=== PATIENT | female | born 1950 | race Asian ===

== ENCOUNTER 2023-07-06 13:24 | Observation (INO) | payer MEDICARE ==
[2023-07-06] MEDS ORDERED: METHOCARBAMOL 500 MG TABLET PO ONE (13:57)
[2023-07-06] MEDS ORDERED: LIDOCAINE 5% TOPICAL PATCH TP ONE (13:58)
[2023-07-06] MEDS ORDERED: LIDOCAINE 5% TOPICAL PATCH ONE (14:46)
[2023-07-06] MEDS ORDERED: METHOCARBAMOL 500 MG TABLET ONE (14:46)
[2023-07-06 15:05] LABS: EPITHELIAL CELLS 0-5 /hpf
[2023-07-06 15:59] LABS: HEMATOCRIT 45.3 % (32.4-45.2); HEMOGLOBIN 14.9 G/dL (10.7-15.3); MCH 29.3 pg (25.7-33.7); MCHC 32.8 g/dl (32.0-36.0); MEAN CELL VOLUME 89.6 fl (80-96); MEAN PLT VOLUME 8.2 fl (7.5-11.1); PLATELET COUNT 249.5 10^3/uL (134-434); RBC 5.06 10^6/uL (3.60-5.2)
[2023-07-06 16:11] LABS: INR 1.08 (0.83-1.09); PROTHROMBIN TIME (PATIENT) 12.5 SEC (9.7-13.0)
[2023-07-06 16:13] LABS: ACTIVATED PTT 31.7 SECONDS (25.2-36.5)
[2023-07-06] MEDS ORDERED: ACETAMINOPHEN 1000 MG/100 ML BAG IVPB ONE (16:13)
[2023-07-06 16:21] LABS: ALBUMIN 4.4 g/dl (3.4-5.0); BILIRUBIN,TOTAL 0.6 mg/dl (0.2-1); CALCIUM 9.7 mg/dl (8.5-10.1); CREATININE 0.7 mg/dl (0.6-1.3); POTASSIUM 4.1 mmol/L (3.5-5.1); TOT PROT 7.2 g/dl (6.4-8.2)
[2023-07-06] MEDS ORDERED: ACETAMINOPHEN INJECTION 100 ML IVPB ONE (16:52)
[2023-07-06 17:09] LABS: PLATELET ESTIMATE ADEQUATE
[2023-07-06 18:34] VITALS: BMI 30.7
[2023-07-06] MEDS ORDERED: KETOROLAC TROMETHAMINE 15 MG/ML VIAL IVPUSH PRN (20:12)
[2023-07-06] MEDS: amLODIPine BESYLATE 5 MG TABLET (FP) PO SCH (21:58)
[2023-07-06] MEDS: ATORVASTATIN CA 10 MG TABLET (FP) PO SCH (21:58)
[2023-07-06] MEDS: SENNOSIDES 8.6MG TABLET (FP) PO SCH (21:58)
[2023-07-06] MEDS: ATENOLOL 50 MG TABLET (FP) PO SCH (21:58)
[2023-07-06] MEDS ORDERED: LIDOCAINE PATCH REMOVAL MC ONE (22:00)
[2023-07-06] MEDS ORDERED: ACETAMINOPHEN 1000 MG/100 ML BAG IVPB PRN (23:00)
[2023-07-07] MEDS ORDERED: traMADol HCL 50 MG TABLET PO PRN (08:01)
[2023-07-07] MEDS ORDERED: methylPREDNISolone 4 MG TABLET PO ONE (08:15)
[2023-07-07] MEDS: ACETAMINOPHEN 500 MG TABLET (FP) PO SCH ×2 (08:36→16:19)
[2023-07-07] MEDS: KETOROLAC TROMETHAMINE 15 MG/ML VIAL IVPUSH SCH ×3 (08:37→20:00)
[2023-07-07 09:11] LABS: CALCIUM 9.1 mg/dl (8.5-10.1); CREATININE 0.7 mg/dl (0.6-1.3); MAGNESIUM 2.2 mg/dL (1.8-2.4); PHOSPHOROUS 3.5 (2.5-4.9); POTASSIUM 3.9 mmol/L (3.5-5.1)
[2023-07-07] MEDS: LIDOCAINE 5% TOPICAL PATCH TP SCH (09:26)
[2023-07-07] MEDS: PANTOPRAZOLE 40 MG TABLET PO SCH (09:26)
[2023-07-07] MEDS: ATENOLOL 50 MG TABLET (FP) PO SCH ×2 (09:26→22:33)
[2023-07-07] MEDS: amLODIPine BESYLATE 5 MG TABLET (FP) PO SCH ×2 (09:26→22:32)
[2023-07-07] MEDS: POLYETHYLENE GLYCOL (HEALTHYLAX) 3350 17 GM PACKET PO SCH ×2 (09:39→22:32)
[2023-07-07] MEDS: METHOCARBAMOL 500 MG TABLET PO PRN (20:30)
[2023-07-07] MEDS: LIDOCAINE PATCH REMOVAL MC SCH (22:02)
[2023-07-07] MEDS: ATORVASTATIN CA 10 MG TABLET (FP) PO SCH (22:30)
[2023-07-07] MEDS: SENNOSIDES 8.6MG TABLET (FP) PO SCH (22:33)
[2023-07-07] MEDS ORDERED: ACETAMINOPHEN 325 MG TABLET (FP) PO PRN (23:00)
[2023-07-08] MEDS: KETOROLAC TROMETHAMINE 15 MG/ML VIAL IVPUSH SCH ×4 (02:00→21:22)
[2023-07-08] MEDS: ACETAMINOPHEN 500 MG TABLET (FP) PO SCH ×3 (06:07→17:11)
[2023-07-08] MEDS: METHOCARBAMOL 500 MG TABLET PO PRN ×2 (08:21→21:21)
[2023-07-08 08:56] LABS: HEMATOCRIT 41.1 % (32.4-45.2); HEMOGLOBIN 13.1 G/dL (10.7-15.3); MCH 28.4 pg (25.7-33.7); MCHC 31.9 g/dl (32.0-36.0); MEAN PLT VOLUME 8.4 fl (7.5-11.1); PLATELET COUNT 240.7 10^3/uL (134-434); RBC 4.62 10^6/uL (3.60-5.2); RDW 15.6 % (11.6-15.6); WHITE BLOOD COUNT 6.6 10^3/uL (4.0-10.8)
[2023-07-08] MEDS ORDERED: methylPREDNISolone 4 MG TABLET PO ONE (09:00)
[2023-07-08 09:37] LABS: CALCIUM 9.4 mg/dl (8.5-10.1); CREATININE 0.7 mg/dl (0.6-1.3); POTASSIUM 3.8 mmol/L (3.5-5.1)
[2023-07-08] MEDS: LIDOCAINE 5% TOPICAL PATCH TP SCH (09:40)
[2023-07-08] MEDS: PANTOPRAZOLE 40 MG TABLET PO SCH (09:41)
[2023-07-08] MEDS: ATENOLOL 50 MG TABLET (FP) PO SCH ×2 (09:41→21:21)
[2023-07-08] MEDS: amLODIPine BESYLATE 5 MG TABLET (FP) PO SCH ×2 (09:41→21:21)
[2023-07-08] MEDS: POLYETHYLENE GLYCOL (HEALTHYLAX) 3350 17 GM PACKET PO SCH ×2 (09:43→22:35)
[2023-07-08] MEDS: ATORVASTATIN CA 10 MG TABLET (FP) PO SCH (21:21)
[2023-07-08] MEDS: SENNOSIDES 8.6MG TABLET (FP) PO SCH (22:35)
[2023-07-08] MEDS: LIDOCAINE PATCH REMOVAL MC SCH (22:36)
[2023-07-09] MEDS: KETOROLAC TROMETHAMINE 15 MG/ML VIAL IVPUSH SCH ×2 (03:51→08:15)
[2023-07-09] MEDS: ACETAMINOPHEN 500 MG TABLET (FP) PO SCH ×2 (03:51→08:15)
[2023-07-09 07:06] VITALS: PULSE 66; RESP 20
[2023-07-09] MEDS: METHOCARBAMOL 500 MG TABLET PO PRN (08:16)
[2023-07-09] MEDS ORDERED: methylPREDNISolone 4 MG TABLET PO ONE (08:30)
[2023-07-09] MEDS ORDERED: methylPREDNISolone 8 MG TABLET PO ONE (08:30)
[2023-07-09] MEDS: PANTOPRAZOLE 40 MG TABLET PO SCH (09:12)
[2023-07-09] MEDS: amLODIPine BESYLATE 5 MG TABLET (FP) PO SCH (09:13)
[2023-07-09] MEDS: ATENOLOL 50 MG TABLET (FP) PO SCH (09:13)
[2023-07-09] MEDS: LIDOCAINE 5% TOPICAL PATCH TP SCH (09:36)
[2023-07-09] MEDS ORDERED: POLYETHYLENE GLYCOL (HEALTHYLAX) 3350 17 GM PACKET PO SCH (10:00)
[2023-07-09 12:31] VITALS: BP 148/78; TEMP 98
[2023-07-11 01:11] LABS: N-TERMINAL BNP 151.3 pg/ml (5-125)
== END 2023-07-09 13:00 | disposition home or self-care (01) ==
LOC: FER 13:24 → FM/S 16:08 → UNDOADMOB 16:08 → INTOOBSV 16:08 → FM/S 16:41
PROVIDERS: ADMIT Internal Medicine Nephrology; ATTEND Internal Medicine
PROC: 0SRD0JZ Replacement of Left Knee Joint with Synthetic Substitute, Open Approach (ICD-10-PCS; principal; 2023-07-06)
PROC: 3E033NZ Introduction of Analgesics, Hypnotics, Sedatives into Peripheral Vein, Percutaneous Approach (ICD-10-PCS; 2023-07-06)
PROC: 3E0333Z Introduction of Anti-inflammatory into Peripheral Vein, Percutaneous Approach (ICD-10-PCS; 2023-07-06)
DX: M54.59 Other low back pain (principal); M25.561 Pain in right knee; M25.562 Pain in left knee; I50.30 Unspecified diastolic (congestive) heart failure; I11.0 Hypertensive heart disease with heart failure; E78.5 Hyperlipidemia, unspecified; M19.90 Unspecified osteoarthritis, unspecified site; K59.00 Constipation, unspecified; E03.9 Hypothyroidism, unspecified; H35.52 Pigmentary retinal dystrophy; H54.3 Unqualified visual loss, both eyes; M25.559 Pain in unspecified hip
CPT/HCPCS: 36415; 71045-TC-FY; 72131-TC; 73700-TC-RT; 80048; 80053; 80061; 81003; 81015; 83036; 83735; 83880; 84100; 84443; 84484; 85027; 85610; 85730; 87086; 93005; 93306-TC; 96374; 96375; 96376; 97116-GP; 97161-GP; 99285-25; G0378